=== PATIENT | female | born 1945 | race Caucasian/White ===

== ENCOUNTER 2018-03-10 09:19 | Emergency (ER) | payer OTHER ==
[~2018-03-10] VITALS: Ht 165.1 cm; Wt 61.7 kg
== END 2018-03-10 16:13 | disposition home or self-care (01) ==
LOC: ER 09:19
DX: B34.9 Viral infection, unspecified (principal)

== ENCOUNTER 2018-08-12 09:50 | Outpatient (CLI) | payer OTHER | END 2018-08-12 09:53 | disposition home or self-care (01) | LOC: SONOGRAMA 09:50 | DX: E03.8 Other specified hypothyroidism (principal); E04.2 Nontoxic multinodular goiter ==